=== PATIENT | female | born 1955 | race Caucasian/White ===

== ENCOUNTER 2019-12-27 18:33 | Outpatient (CLI) | payer MEDICARE, BC | END 2019-12-27 18:34 | disposition home or self-care (01) | LOC: COV 18:33 | PROVIDERS: ATTEND Family Medicine | DX: J02.9 Acute pharyngitis, unspecified (principal); R19.7 Diarrhea, unspecified; R09.81 Nasal congestion; R11.2 Nausea with vomiting, unspecified; Z20.828 Contact with and (suspected) exposure to other viral communicable diseases ==

== ENCOUNTER 2020-05-24 11:18 | Outpatient (CLI) | payer MEDICARE, BC ==
--- NOTE | 2020-05-25 12:51 | Mammography Report ---
BILATERAL DIGITAL SCREENING MAMMOGRAM 3D/2D: 05/24/2020 CLINICAL: Routine screening. Comparison is made to exams dated: 10/22/2017 mammogram, 01/02/2015 mammogram, 12/29/2015 mammogram, mammogram, 06/09/2014 mammogram, and 12/18/2012 mammogram - [facility]. Th e tissue of both breasts is predominantly fatty. There is a stable benign focal asymmetry in both breasts. There also are stable benign calcification s in both breasts. No significant masses, calcifications, or other findings are seen in either breast. There has been no significant interval change. IMPRESSION: BENIGN There is no mammographic evidence of malignancy. A 1 year screening mammogram is recommended. This exam was interpreted at Station ID: [id number]. NOTE: For mammograms, a report in lay terms will be sent to the patient. Approximately 15% of breast malignancies will not be visualized mammographically. In the management of a palpable breast mass, a negative mammogram must not discourage biopsy of a clinically suspicious lesion. Electronically Signed By: Danny Carrion acr/penrad:05/24/2020 11:54:47 ACR BI-RADS Category 2: Benign Finding(s) 3342F PARENCHYMAL PATTERN: (F) - The breast(s) demonstrate(s) diffuse fatty replacement. BI-RADS CATEGORY: (2) - 2 RECOMMENDATION: (ANNUAL) - Recommend routine annual screening mammography. [id number] 1 year screening LATERALITY: (B)
== END 2020-05-24 11:19 | disposition home or self-care (01) ==
LOC: DI 11:18
DX: Z12.31 Encounter for screening mammogram for malignant neoplasm of breast (principal)

== ENCOUNTER 2020-09-29 09:49 | Outpatient (CLI) | payer MEDICARE, BC ==
[2020-09-29 10:26] LABS: ALBUMIN 4.2 g/dL (3.2-5.5); ALBUMIN/GLOBULIN RATIO 1.2 (1.0-2.2); ALKALINE PHOSPHATASE 155 IU/L (42-121); ALT ALANINE AMINOTRANSFERASE 14 IU/L (10-60); AST ASPARTATE AMINOTRANSFERASE 15 IU/L (10-42); BILIRUBIN,TOTAL 0.6 mg/dL (0.2-1.0); BUN - BLOOD UREA NITROGEN 15 mg/dL (6-20); CALCIUM 11.1 mg/dL (8.5-10.3); CARBON DIOXIDE - CO2 27 mmol/L (21-32); CHLORIDE 102 mmol/L (101-111); CHOL/HDL RATIO 3.4 (<4.4); CHOLESTEROL 135 mg/dL; CREATININE 0.9 mg/dL (0.4-1.0); GFR - MDRD 63 (>89); GLUCOSE 139 mg/dL (70-100); HDL CHOLESTEROL 40 mg/dL; LDL CHOLESTEROL,CALCULATED 74 mg/dL; LDL/HDL RATIO 1.9 (<4.4); POTASSIUM 4.4 mmol/L (3.5-5.0); SODIUM 141 mmol/L (135-145); TOTAL PROTEIN 7.7 g/dL (6.7-8.2); TRIGLYCERIDES 104 mg/dL; VLDL CHOLESTEROL 21 mg/dL
[2020-09-29 12:27] LABS: ESTIMATED AVERAGE GLUCOSE 171 mg/dL (70-100); HEMOGLOBIN A1c% 7.6 % (4.27-6.07)
== END 2020-09-29 09:50 | disposition home or self-care (01) ==
LOC: LAB 09:49
PROVIDERS: ATTEND Internal Medicine
DX: E11.9 Type 2 diabetes mellitus without complications (principal); E78.5 Hyperlipidemia, unspecified
CPT/HCPCS: 36415; 80053; 80061; 83036; 83721

== ENCOUNTER 2021-07-14 06:31 | Outpatient (CLI) | payer MEDICARE, BC | END 2021-07-14 06:32 | disposition EMS.NT | LOC: EMS 06:31 | DX: Z03.89 Encounter for observation for other suspected diseases and conditions ruled out (principal) ==

== ENCOUNTER 2021-08-14 15:25 | Outpatient (CLI) | payer MEDICARE, BC ==
--- NOTE | 2021-08-16 08:58 | Mammography Report ---
BILATERAL DIGITAL SCREENING MAMMOGRAM 3D/2D: 08/14/2021 CLINICAL: Family history of breast cancer. Routine screening. Comparison is made to exams dated: 05/24/2020 mammogram - [facility], 10/22/2017 mammo gram, 12/29/2015 mammogram, 01/02/2015 mammogram, 06/13/2014 mammogram, and 06/09/2014 mammogram - [facility]. The tissue of both breasts is predominantly fatty. There is a stable benign focal asymmetry in both breasts. There also are stable benign calcification s in both breasts. No significant masses, calcifications, or other findings are seen in either breast. There has been no significant interval change. IMPRESSION: BENIGN There is no mammographic evidence of malignancy. A 1 year screening mammogram is recommended. Based on the Tyrer Cuzick model (a risk assessment model) the patients lifetime risk is 11.6% and he r 10 year risk is 5.4%. According to the ACR, ACS, and NCCN guidelines, an annual breast MRI exam angela ng with mammogram is recommended if the patients lifetime risk is 20% or greater. This exam was interpreted at Station ID: [id number]. NOTE: For mammograms, a report in lay terms will be sent to the patient. Approximately 15% of breast malignancies will not be visualized mammographically. In the management of a palpable breast mass, a negative mammogram must not discourage biopsy of a clinically suspicious lesion. Electronically Signed By: Danny Carrion acr/penrad:08/15/2021 12:24:29 ACR BI-RADS Category 2: Benign Finding(s) 3342F PARENCHYMAL PATTERN: (F) - The breast(s) demonstrate(s) diffuse fatty replacement. BI-RADS CATEGORY: (2) - 2 RECOMMENDATION: (ANNUAL) - Recommend routine annual screening mammography. [id number] 1 year screening LATERALITY: (B)
== END 2021-08-14 15:26 | disposition home or self-care (01) ==
LOC: DI.N 15:25
PROVIDERS: ATTEND Internal Medicine
DX: Z12.31 Encounter for screening mammogram for malignant neoplasm of breast (principal); Z80.3 Family history of malignant neoplasm of breast

== ENCOUNTER 2022-02-01 09:33 | Outpatient (CLI) | payer MEDICARE, BC ==
[2022-02-01 10:11] LABS: ALBUMIN/GLOBULIN RATIO 1.1 (1.0-2.2); BILIRUBIN,TOTAL 0.4 mg/dL (0.2-1.0); CALCIUM 9.5 mg/dL (8.5-10.3); CREATININE 0.9 mg/dL (0.4-1.0); POTASSIUM 4.4 mmol/L (3.5-5.0); TOTAL PROTEIN 7.5 g/dL (6.7-8.2)
[2022-02-01 11:37] LABS: ESTIMATED AVERAGE GLUCOSE 194 mg/dL (70-100); HEMOGLOBIN A1c% 8.4 % (4.27-6.07)
== END 2022-02-01 09:34 | disposition home or self-care (01) ==
LOC: LAB 09:33
PROVIDERS: ATTEND Internal Medicine
DX: E11.9 Type 2 diabetes mellitus without complications (principal)
CPT/HCPCS: 36415; 80053; 83036

== ENCOUNTER 2022-08-09 19:02 | Outpatient (CLI) | payer MEDICARE, OTHER ==
[2022-08-09 19:48] LABS: ALBUMIN 4.6 g/dL (3.2-5.5); ALBUMIN/GLOBULIN RATIO 1.1 (1.0-2.2); ALKALINE PHOSPHATASE 158 IU/L (42-121); ALT ALANINE AMINOTRANSFERASE 26 IU/L (10-60); AST ASPARTATE AMINOTRANSFERASE 22 IU/L (10-42); BILIRUBIN,TOTAL 0.6 mg/dL (0.2-1.0); BUN - BLOOD UREA NITROGEN 13 mg/dL (6-20); CALCIUM 9.7 mg/dL (8.5-10.3); CARBON DIOXIDE - CO2 28 mmol/L (21-32); CHLORIDE 94 mmol/L (101-111); CHOL/HDL RATIO 3.2 (<4.4); CHOLESTEROL 161 mg/dL; CREATININE 0.8 mg/dL (0.4-1.0); GFR - MDRD 72 (>89); GLUCOSE 199 mg/dL (70-100); HDL CHOLESTEROL 51 mg/dL; LDL CHOLESTEROL,CALCULATED 83 mg/dL; LDL/HDL RATIO 1.6 (<4.4); POTASSIUM 4.2 mmol/L (3.5-5.0); SODIUM 133 mmol/L (135-145); TOTAL PROTEIN 8.8 g/dL (6.7-8.2); TRIGLYCERIDES 137 mg/dL; VLDL CHOLESTEROL 27 mg/dL
[2022-08-09 19:58] LABS: THYROID STIMULATING HORMONE 1.63 uIU/mL (0.34-5.60)
[2022-08-09 20:33] LABS: ESTIMATED AVERAGE GLUCOSE 197 mg/dL (70-100); HEMOGLOBIN A1c% 8.5 % (4.27-6.07)
== END 2022-08-09 19:03 | disposition home or self-care (01) ==
LOC: LAB 19:02
PROVIDERS: ATTEND Internal Medicine
DX: E83.42 Hypomagnesemia (principal); E11.9 Type 2 diabetes mellitus without complications
CPT/HCPCS: 36415; 80053; 80061; 83036; 83721; 83735; 84443

== ENCOUNTER 2022-09-16 17:31 | Outpatient (CLI) | payer MEDICARE, OTHER ==
[2022-09-16 17:55] LABS: BASOPHILS # (AUTO) 0.1 10^3/uL (0.0-0.1); BASOPHILS % (AUTO) 0.8 %; EOSINOPHILS % (AUTO) 9.1 %; HCT - HEMATOCRIT 37.3 % (37.0-47.0); HGB - HEMOGLOBIN 11.2 g/dL (12.0-16.0); LYMPHOCYTES # (AUTO) 2.8 10^3/uL (1.5-3.5); LYMPHOCYTES % (AUTO) 26.1 %; MEAN CORPUSCULAR HEMOGLOBIN 25.5 pg (27.0-31.0); MEAN CORPUSCULAR VOLUME 84.8 fL (81.0-99.0); MEAN PLATELET VOLUME 9.6 fL (7.9-10.8); MONOCYTES # (AUTO) 0.6 10^3/uL (0.0-1.0); MONOCYTES % (AUTO) 5.1 %; NEUTROPHILS # (AUTO) 6.3 10^3/uL (1.5-6.6); NEUTROPHILS % (AUTO) 58.1 %; PLT - PLATELET COUNT 390 10^3/uL (130-450); RED CELL DISTRIBUTION WIDTH 15.9 % (12.0-15.0); WHITE BLOOD COUNT 10.8 x10^3/uL (4.8-10.8)
== END 2022-09-16 17:32 | disposition home or self-care (01) ==
LOC: LAB 17:31
PROVIDERS: ATTEND Internal Medicine
DX: L03.211 Cellulitis of face (principal); R21 Rash and other nonspecific skin eruption
CPT/HCPCS: 36415; 85025; 86787

== ENCOUNTER 2022-12-20 17:59 | Outpatient (CLI) | payer MEDICARE, OTHER ==
[2022-12-20 18:38] LABS: ALBUMIN 4.2 g/dL (3.2-5.5); ALBUMIN/GLOBULIN RATIO 1.3 (1.0-2.2); BILIRUBIN,TOTAL 0.3 mg/dL (0.2-1.0); CALCIUM 9.7 mg/dL (8.5-10.3); CREATININE 0.8 mg/dL (0.6-1.3); TOTAL PROTEIN 7.4 g/dL (6.4-8.9)
[2022-12-20 20:33] LABS: ESTIMATED AVERAGE GLUCOSE 214 mg/dL (70-100); HEMOGLOBIN A1c% 9.1 % (4.27-6.07)
== END 2022-12-20 18:00 | disposition home or self-care (01) ==
LOC: LAB 17:59
PROVIDERS: ATTEND Internal Medicine
DX: E11.65 Type 2 diabetes mellitus with hyperglycemia (principal)
CPT/HCPCS: 36415; 80053; 83036

== ENCOUNTER 2023-05-06 16:03 | Emergency (ER) | payer MEDICARE, OTHER ==
[2023-05-06 16:23] VITALS: O2SAT 100
--- NOTE | 2023-05-06 16:27 | ED Physician Documentation ---
PD HPI MAJOR TRAUMA - Stated complaint Stated Complaint: FALL/HIT HEAD - Chief complaint Chief Complaint: Trauma Hd/Nk - History obtained from History obtained from: Patient - Additional information Additional information: Around 530 this morning she had a trip and fall on the way to the bathroom and hit her head quite hard on hardwood. There is no loss of consciousness but she does have a severe headache with vertigo and vomiting. She also complains of neck pain since the fall. She also injured her right knee but is able to walk and bear weight on it. No other injuries. PD PAST MEDICAL HISTORY - Past Medical History Past Medical History: Yes - Past Surgical History Past Surgical History: Yes - Present Medications Home Medications: Ambulatory Orders Medication Instructions Recorded Confirmed Meclizine HCl [Motion Sickness] 25 mg PO Q6H PRN #20 tablet 05/06/23 Ondansetron Odt [Zofran] 4 mg TL Q6H PRN #10 tablet 05/06/23 - Allergies Allergies/Adverse Reactions: Allergies Allergy/AdvReac Type Severity Reaction Status Date / Time amantadine Allergy Unknown Verified 05/06/23 16:12 bacitracin Allergy Edema Verified 05/06/23 16:12 cefuroxime [From Ceftin] Allergy Itching Verified 05/06/23 16:12 clindamycin Allergy Hives Verified 05/06/23 16:12 Macrolide Antibiotics Allergy Hives Verified 05/06/23 16:12 metronidazole [From Flagyl] Allergy Hives Verified 05/06/23 16:12 Penicillins Allergy Hives Verified 05/06/23 16:12 Quinolones Allergy Anxiety Verified 05/06/23 16:12 sodium ferric gluconate Allergy Hives Verified 05/06/23 16:12 complex [From Ferrlecit] sucrose [From Ferrlecit] Allergy Hives Verified 05/06/23 16:12 Sulfa (Sulfonamide Allergy Unknown Verified 05/06/23 16:12 Antibiotics) vancomycin Allergy Rash Verified 05/06/23 16:12 verapamil Allergy Edema Verified 05/06/23 16:12 - Social History Does the pt smoke?: No Smoking Status: Never smoker Does the pt drink ETOH?: No Does the pt have substance abuse?: No - Immunizations Immunizations are current?: Yes - POLST Patient has POLST: No PD ED PE NORMAL - Vitals Vital signs reviewed: Yes - General General: Alert and oriented X 3, Other (She appears mildly uncomfortable) - HEENT HEENT: PERRL, EOMI - Neck Neck: No bony TTP - Derm Derm: Normal color, Warm and dry - Extremities Extremities: Other (Bruising to the anterior right knee with mild tenderness, full range of motion. She is bruised in the area of the proximal phalanx of the left thumb with tenderness there. There is also some bruising on the anterior left wrist, but no tenderness or limited range of motion there. ) - Neuro Neuro: Alert and oriented X 3, Normal speech Eye Opening: Spontaneous Motor: Obeys Commands Verbal: Oriented GCS Score: 15 Results - Vitals Vitals: Vital Signs - 24 hr 05/06/23 05/06/23 16:12 18:01 Temperature 36.8 C Heart Rate 95 78 Respiratory 16 16 Rate Blood Pressure 144/99 H 123/78 O2 Saturation 100 Oxygen O2 Source Room air - Rads (name of study) 4 view x-ray of the right knee was negative Relevant Findings:: Final report received, EMP independent interpretation of test CT of the head and cervical spine showed degenerative and age-related changes without acute trauma. Relevant Findings:: Final report received, EMP independent interpretation of test Three-view x-ray of the left hand was negative for fracture. Relevant Findings:: Final report received, EMP independent interpretation of test PD Medical Decision Making - ED course ED course: She presents with postconcussive symptoms after hitting her head, also bruises on multiple areas, the only ones that were tender where the left thumb and right knee with negative imaging. Feeling better after Zofran and meclizine here. Departure - Departure Disposition: 01 Home, Self Care Clinical Impression: Concussion Qualifiers: Encounter type: initial encounter Loss of consciousness presence/duration: without LOC Qualified Code(s): S06.0X0A - Concussion without loss of consciousness, initial encounter Neck strain Qualifiers: Encounter type: initial encounter Qualified Code(s): S16.1XXA - Strain of muscle, fascia and tendon at neck level, initial encounter Left thumb sprain Qualifiers: Encounter type: initial encounter Sprain of finger site: metacarpophalangeal joint Qualified Code(s): S63.642A - Sprain of metacarpophalangeal joint of left thumb, initial encounter Contusion of right knee Qualifiers: Encounter type: initial encounter Qualified Code(s): S80.01XA - Contusion of right knee, initial encounter Condition: Good Record reviewed to determine appropriate education?: Yes Instructions: ED Concussion, ED Sprain Strain Neck Prescriptions: Meclizine HCl [Motion Sickness] 25 mg PO Q6H PRN #20 tablet PRN Reason: Dizziness Ondansetron Odt [Zofran] 4 mg TL Q6H PRN #10 tablet PRN Reason: Nausea / Vomiting Comments: Avoid any activities where he would be at risk for repeat head injury until your symptoms are improved, return for new or worsening symptoms. Imaging of the head, cervical spine, left hand and right knee were negative with the exception of some degenerative changes in your neck. Forms: PCP List Discharge Date/Time: 05/06/23 18:01
[2023-05-06] MEDS: ONDANSETRON ODT 4 MG TABLET TL STA (16:39)
[2023-05-06] MEDS: MECLIZINE 12.5 MG TABLET PO STA (16:42)
--- NOTE | 2023-05-06 17:14 | XRAY Report ---
PROCEDURE: Knee 4+V RT INDICATIONS: knee inj TECHNIQUE: 4 views of the knee(s) were acquired. COMPARISON: None. FINDINGS: Bones: No fractures or dislocations. No suspicious bony lesions. Soft tissues: No knee joint effusion. No suspicious soft tissue calcifications or masses. IMPRESSION: No acute bony abnormality. If clinical symptoms persist, consider a repeat exam in 7-10 days or MRI. Reviewed by: Poornima Murillo MD on 05/06/2023 5:13 PM PDT Approved by: Poornima Murillo MD on 05/06/2023 5:13 PM PDT Station ID: [id number]
[2023-05-06] MEDS: ACETAMINOPHEN 500 MG TABLET PO STA (17:29)
--- NOTE | 2023-05-06 17:37 | CT Report ---
PROCEDURE: Head WO INDICATIONS: head inj TECHNIQUE: Noncontrast 4.5 mm thick angled axial sections acquired from the foramen magnum to the vertex. For r adiation dose reduction, the following was used: automated exposure control, adjustment of mA and/or kV according to patient size. COMPARISON: None. FINDINGS: Image quality: Excellent. CSF spaces: Basal cisterns are patent. No extra-axial fluid collections. Ventricles are normal in size and shape. Brain: No midline shift. No intracranial masses or hemorrhage. No mass effect. Cooper-white matter i nterface is normal. There cerebral volume loss for age with resultant ventricular and sulcal prominen ce. There are periventricular and deep white matter chronic small vessel ischemic changes. Atheroscle rotic calcifications are noted in the intracranial segments of the bilateral internal carotid arterie s. Skull and face: Calvarium and visualized facial bones are intact, without suspicious lesions. Sinuses: Visualized sinuses and mastoids are clear. IMPRESSION: No acute intracranial pathology. Age-related senescent changes and sequela chronic small vessel ischemic disease. Reviewed by: Alli Moise MD on 05/06/2023 5:36 PM PDT Approved by: Alli Moise MD on 05/06/2023 5:36 PM PDT Station ID: [id number]
--- NOTE | 2023-05-06 17:39 | CT Report ---
PROCEDURE: Cervical Spine WO INDICATIONS: neck inj TECHNIQUE: Noncontrast 3 mm thick sections acquired from the skull base to the T4 level. Sagittal and coronal r eformats were then constructed. For radiation dose reduction, the following was used: automated exp osure control, adjustment of mA and/or kV according to patient size. COMPARISON: None. FINDINGS: Image quality: Diagnostic. Bones: No acute fractures or dislocations. No acute compression fractures of the vertebral bodies. Craniocervical junction is intact. C1-C2 relationship is preserved. Visualized superior ribs are inta ct. Moderate multilevel cervical spondylosis most pronounced at C5-6. Soft tissues: Prevertebral soft tissues are normal in thickness. No paravertebral hematomas. No a pical pneumothoraces. IMPRESSION: CT cervical spine without acute fracture or traumatic malalignment. Moderate multilevel cervical spondylosis most pronounced at C5-6. Reviewed by: Alli Moise MD on 05/06/2023 5:38 PM PDT Approved by: Alli Moise MD on 05/06/2023 5:38 PM PDT Station ID: [id number]
--- NOTE | 2023-05-06 17:44 | XRAY Report ---
PROCEDURE: Hand 3+V LT INDICATIONS: hand inj TECHNIQUE: 3 views of the hand(s) acquired. COMPARISON: None. FINDINGS: Bones: No definite acute fracture. Moderate degenerative changes seen throughout the left hand and w rist. Moderate degenerative changes noted at the first carpometacarpal joint, first metacarpophalange al joint, and triscaphe joint. Degenerative changes of the radiocarpal joint. Soft tissues: No suspicious soft tissue calcifications or masses. No significant soft tissue swell ing noted. IMPRESSION: Left hand without fracture or dislocation. Polyarticular background degenerative changes involving th e left thumb interphalangeal, metacarpophalangeal, and first carpometacarpal joints. If there is persistent clinical concern for a radiographically occult fracture, recommend immobilizat ion and repeat imaging in 10 to 14 days. Reviewed by: Alli Moise MD on 05/06/2023 5:43 PM PDT Approved by: Alli Moise MD on 05/06/2023 5:43 PM PDT Station ID: [id number]
[2023-05-06 18:04] VITALS: BP 123/78
== END 2023-05-06 18:01 | disposition home or self-care (01) ==
LOC: ED 16:03
DX: S06.0X0A Concussion without loss of consciousness, initial encounter (principal); S16.1XXA Strain of muscle, fascia and tendon at neck level, initial encounter; S63.642A Sprain of metacarpophalangeal joint of left thumb, initial encounter; S80.01XA Contusion of right knee, initial encounter; W01.198A Fall on same level from slipping, tripping and stumbling with subsequent striking against other object, initial encounter; Y92.009 Unspecified place in unspecified non-institutional (private) residence as the place of occurrence of the external cause
CPT/HCPCS: 70450; 72125; 73130; 73564; 99284; A9270; Q0162

== ENCOUNTER 2023-05-14 08:51 | Outpatient (CLI) | payer MEDICARE, OTHER ==
--- NOTE | 2023-05-15 09:55 | Mammography Report ---
BILATERAL DIGITAL DIAGNOSTIC MAMMOGRAM 3D/2D: 05/14/2023 CLINICAL: Bilateral breast skin changes. Comparison is made to exams dated: 08/14/2021 mammogram, 05/24/2020 mammogram - [facility], and 10/22/2017 mammogram - [facility]. Both breasts are almost entirely fatty (category a/<25% glandular tissue). No significant masses, calcifications, or other findings are seen in either breast. Multiple bilatera l circumscribed cysts are benign. IMPRESSION: BENIGN There is no mammographic evidence of malignancy. A 1 year screening mammogram is recommended. Based on the Tyrer Cuzick model (a risk assessment model) the patient's lifetime risk is 10.7% and he r 10 year risk is 5.4%. According to the ACR, ACS, and NCCN guidelines, an annual breast MRI exam angela ng with mammogram is recommended if the patient's lifetime risk is 20% or greater. This exam was interpreted at Station ID: [id number]. NOTE: For mammograms, a report in lay terms will be sent to the patient. Approximately 15% of breast malignancies will not be visualized mammographically. In the management of a palpable breast mass, a negative mammogram must not discourage biopsy of a clinically suspicious lesion. Electronically Signed By: Anand Sanchez M.D. slc/:05/14/2023 09:35:26 ACR BI-RADS Category 2: Benign Finding(s) 3342F PARENCHYMAL PATTERN: (F) - The breast(s) demonstrate(s) diffuse fatty replacement. BI-RADS CATEGORY: (2) - 2 RECOMMENDATION: (ANNUAL) - Recommend routine annual screening mammography. [id number] 1 year screening LATERALITY: (B)
== END 2023-05-14 08:52 | disposition home or self-care (01) ==
LOC: DI 08:51
PROVIDERS: ATTEND Internal Medicine
DX: N64.4 Mastodynia (principal)

== ENCOUNTER 2023-09-24 08:00 | Outpatient (CLI) | payer MEDICARE, OTHER | END 2023-09-24 23:59 | disposition home or self-care (01) | LOC: LAB 08:00 | PROVIDERS: ATTEND Internal Medicine | DX: R19.7 Diarrhea, unspecified (principal) | CPT/HCPCS: 81599; 87493 ==